=== PATIENT | female | born 2005 | race Caucasian/White ===

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

== ENCOUNTER 2023-01-28 16:02 | Emergency (ER) | payer OTHER, SELFPAY ==
[2023-01-28 16:10] VITALS: BP 84/44; PULSE 87; RESP 18; TEMP 36.6; O2SAT 100
--- NOTE | 2023-01-28 16:17 | DI.RAD.S_ITS ---
PROCEDURE: XR CHEST 1V INDICATIONS: suspected sepsis TECHNIQUE: One view of the chest was acquired. COMPARISON: None. FINDINGS: Surgical changes and devices: None. Lungs and pleura: Lungs are clear. No pleural effusions or pneumothorax. Mediastinum: Mediastinal contours appear normal. Heart size is normal. Bones and chest wall: No suspicious bony lesions. Overlying soft tissues appear unremarkable. IMPRESSION: No evidence acute pulmonary process. Dictated by: Cuco Cormier M.D. on 01/28/2023 at 16:38 Approved by: Cuco Cormier M.D. on 01/28/2023 at 16:40
[2023-01-28] MEDS: SODIUM CHLORIDE 0.9% 1,000 ML 1000 ML IV (16:34)
[2023-01-28] MEDS: ONDANSETRON 4 MG/2 ML INJ IV (16:34)
[2023-01-28] MEDS: KETOROLAC 30 MG/ML VIAL 15 MG IV (16:39)
[2023-01-28 16:40] LABS: Add Manual Diff / Slide Review NO; Basophils Absolute Auto 100 /uL (0-100); Basophils Percent Auto 0.4 % (0-2); Eosinophils Absolute Auto 200 /uL (0-450); Eosinophils Percent Auto 1.3 % (2-4); Hematocrit 37.4 % (36-46); Hemoglobin 12.7 g/dL (12.0-16.0); Lymphocytes Absolute Auto 2200 /uL (1100-4500); Mean Corpuscular Hemoglobin 32.2 PG (26-34); Mean Corpuscular Volume 94.6 fL (80-100); Monocytes Absolute Auto 1300 /uL (0-900); Monocytes Percent Auto 9.4 % (3-14); Neutrophils Absolute Auto 10000 /uL (1500-7000); Neutrophils Percent Auto 72.9 % (50-75); Platelet Count 385 X10^3/uL (150-400); Red Blood Cell Count 3.96 X10^6/uL (4.0-5.2); Red Cell Distribution Width 12.5 % (11.6-14.8); White Blood Cell Count 13.7 X10^3/uL (4.5-11.0)
[2023-01-28 16:48] LABS: INR 1.1 (0.9-1.3); Prothrombin Time 12.6 SECONDS (10.1-12.7)
[2023-01-28 16:51] LABS: Amorphous Sediment Urine 2+; Bacteria Urine Moderate (10-30); RBC Urine 5-10/HPF (0-5/HPF); Squamous Epithelial Cell Urine 0-1 /HPF (0-5/HPF); WBC Urine 5-10/HPF (0-5/HPF)
[2023-01-28 16:51] LABS: PTT Partial Thromboplastin Tim 28 SECONDS (26-36)
[2023-01-28 16:53] LABS: Lactate (Lactic Acid) 1.5 mmol/L (0.7-2.1)
[2023-01-28 16:54] LABS: Alanine Aminotransferase 17 IU/L (<35); Albumin 4.8 g/dL (3.5-5.0); Albumin Globulin Ratio 1.5 (1.0-2.8); Alkaline Phosphatase 77 U/L (38-126); Aspartate Aminotransferase 24 IU/L (14-36); Bilirubin Total 0.7 mg/dL (0.2-1.3); Blood Urea Nitrogen 9 mg/dL (7-17); Calcium 9.4 mg/dL (8.4-10.2); Carbon Dioxide 26 mmol/L (22-32); Chloride 100 mmol/L (98-107); Estimated Glomerular Filt Rate > 60 mL/min (>60); Globulin 3.2 g/dL (1.7-4.1); Glucose 96 mg/dL (70-100); HEMOLYSIS 29 (0-50); Lipase 43 U/L (23-300); Potassium 3.2 mmol/L (3.4-5.1); Sodium 137 mmol/L (137-145)
[2023-01-28 17:04] VITALS: PULSE 66; O2SAT 100
[2023-01-28 17:11] LABS: Procalcitonin 0.03 ng/mL (<0.5)
[2023-01-28 17:30] VITALS: BP 112/59; PULSE 71; O2SAT 100
--- NOTE | 2023-01-28 17:53 | ED.FEMALEGU ---
HPI - Female Genitourinary <ROSALBA Dsouza - Last Filed: 01/28/23 18:19> General Chief complaint: Urogenital-Female Stated complaint: Back pain Time Seen by Provider: 01/28/23 16:23 Source: patient Mode of arrival: Ambulatory History of Present Illness HPI Narrative: This 17-year-old female with history of UTIs in the past, presents emergency department complaining of bilateral flank pain, states that she had urinary frequency and urgency without dysuria, areas left-sided flank pain now is right-sided flank pain. Denies blood in her urine, her last menses has finished. Denies fevers, endorses nausea without vomiting, denies stool changes call respiratory symptoms including cough, congestion, runny nose or sore throat. 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 She denies any wounds, denies abnormal vaginal discharge. Denies fevers, denies chills. Related Data Previous Rx's Medication Instructions Recorded ondansetron 4 mg disintegrating 4 mg PO Q8H PRN nausea and 01/28/23 tablet vomiting #10 tabs sulfamethoxazole 800 1 tab PO BID 7 days #14 tabs 01/28/23 mg-trimethoprim 160 mg tablet (Bactrim DS) Allergies Allergy/AdvReac Type Severity Reaction Status Date / Time No Known Drug Allergies Allergy Verified 06/27/21 11:16 Review of Systems <ROSALBA Dsouza - Last Filed: 01/28/23 18:19> Review of Systems ROS Unobtainable: All systems reviewed & are unremarkable except as noted in HPI and below Patient History <ROSALBA Dsouza - Last Filed: 01/28/23 18:19> alcohol intake frequency: holidays/special occasions only Substance Use Type: does not use Exam <ROSALBA Dsouza Last Filed: 01/28/23 18:19> Narrative Exam Narrative: Reviewed vitals signs and nursing notes. General: cooperative, in no acute distress, well groomed HEENT: symmetrical facial expressions, moist mucous membranes, neck is supple CV: regular rate and rhythm, warm extremities Respiratory:Without abnormal breath sounds, normal work of breathing, without tachypnea, hypoxia. GI: abdomen soft, nontender to palpation in all quadrants, nondistended, without masses, rebound tenderness, bilateral CVA tenderness is mild to palpation, no suprapubic tenderness MSK: moves all extremities, neurovascularly intact, no weakness, normal tone Skin: brisk capillary refill, without rash or wound Neuro: normal speech and cognition, A&O x3, ambulatory, clear speech Initial Vital Signs Initial Vital Signs: Vital Signs Temperature 97.8 F 01/28/23 16:10 Pulse Rate 87 01/28/23 16:10 Respiratory Rate 18 01/28/23 16:10 Blood Pressure 84/44 L 01/28/23 16:10 Pulse Oximetry 100 01/28/23 16:10 Oxygen Delivery Method Room Air 01/28/23 16:10 <Juan Jose Alexis DO - Last Filed: 01/29/23 03:20> Initial Vital Signs Initial Vital Signs: Vital Signs Temperature 97.8 F 01/28/23 16:10 Pulse Rate 87 01/28/23 16:10 Respiratory Rate 18 01/28/23 16:10 Blood Pressure 84/44 L 01/28/23 16:10 Pulse Oximetry 100 01/28/23 16:10 Oxygen Delivery Method Room Air 01/28/23 16:10 Course <ROSALBA Dsouza - Last Filed: 01/28/23 18:19> Orders Ordered: Discontinued Medications Sodium Chloride (Normal Saline 0.9%) 1,000 mls @ 1,000 mls/hr IV BOLUS ONE Stop: 01/28/23 17:16 Last Infusion: 01/28/23 18:00 Dose: 0 mls/hr Documented By: Admin: 01/28/23 16:34 Dose: 1,000 mls/hr Documented By: BS Ceftriaxone Sodium 1,000 mg/ (Sodium Chloride) 100 mls @ 200 mls/hr IV NOW ONE Stop: 01/28/23 17:57 Last Admin: 01/28/23 18:10 Dose: Not Given Documented By: AT Ceftriaxone Sodium 1,000 mg/ (Sodium Chloride) 10 mls @ 150 mls/hr IV NOW ONE Stop: 01/28/23 18:03 Last Infusion: 01/28/23 18:15 Dose: 0 mls/hr Documented By: Admin: 01/28/23 18:10 Dose: 150 mls/hr Documented By: AT Ketorolac Tromethamine (Ketorolac 30 Mg/Ml Vial) 15 mg IV NOW ONE Stop: 01/28/23 16:36 Last Admin: 01/28/23 16:39 Dose: 15 mg Documented By: BS Ondansetron HCl (Ondansetron 4 Mg Odt) 4 mg SL NOW PRN PRN Reason: Nausea And Vomiting Ondansetron HCl (Ondansetron 4 Mg/2 Ml Inj) 4 mg IV NOW PRN PRN Reason: Nausea And Vomiting Last Admin: 01/28/23 16:34 Dose: 4 mg Documented By: BS Potassium Chloride (Potassium Chloride 20 Meq/15 Ml Udc) 40 meq PO NOW ONE Stop: 01/28/23 18:00 Last Admin: 01/28/23 18:10 Dose: 40 meq Documented By: AT Trimethoprim/Sulfamethoxazole (Trimeth/Sulfa 160/800 (Ds) Tablet) 1 tab PO NOW ONE Stop: 01/28/23 17:54 Last Admin: 01/28/23 18:03 Dose: Not Given Documented By: AT Vital Signs Vital signs: Vital Signs - 8 hr 01/28/23 16:10 01/28/23 17:04 01/28/23 17:30 Temperature 97.8 F Pulse Rate 87 66 Respiratory Rate 18 Blood Pressure 84/44 L 112/59 L Pulse Oximetry 100 100 Oxygen Delivery Method Room Air Room Air 01/28/23 17:30 Temperature Pulse Rate 71 Respiratory Rate Blood Pressure Pulse Oximetry 100 Oxygen Delivery Method Room Air <Juan Jose Alexis DO - Last Filed: 01/29/23 03:20> Orders Ordered: Discontinued Medications Sodium Chloride (Normal Saline 0.9%) 1,000 mls @ 1,000 mls/hr IV BOLUS ONE Stop: 01/28/23 17:16 Last Infusion: 01/28/23 18:00 Dose: 0 mls/hr Documented By: Admin: 01/28/23 16:34 Dose: 1,000 mls/hr Documented By: BS Ceftriaxone Sodium 1,000 mg/ (Sodium Chloride) 100 mls @ 200 mls/hr IV NOW ONE Stop: 01/28/23 17:57 Last Admin: 01/28/23 18:10 Dose: Not Given Documented By: AT Ceftriaxone Sodium 1,000 mg/ (Sodium Chloride) 10 mls @ 150 mls/hr IV NOW ONE Stop: 01/28/23 18:03 Last Infusion: 01/28/23 18:15 Dose: 0 mls/hr Documented By: Admin: 01/28/23 18:10 Dose: 150 mls/hr Documented By: AT Ketorolac Tromethamine (Ketorolac 30 Mg/Ml Vial) 15 mg IV NOW ONE Stop: 01/28/23 16:36 Last Admin: 01/28/23 16:39 Dose: 15 mg Documented By: BS Ondansetron HCl (Ondansetron 4 Mg Odt) 4 mg SL NOW PRN PRN Reason: Nausea And Vomiting Ondansetron HCl (Ondansetron 4 Mg/2 Ml Inj) 4 mg IV NOW PRN PRN Reason: Nausea And Vomiting Last Admin: 01/28/23 16:34 Dose: 4 mg Documented By: BS Potassium Chloride (Potassium Chloride 20 Meq/15 Ml Udc) 40 meq PO NOW ONE Stop: 01/28/23 18:00 Last Admin: 01/28/23 18:10 Dose: 40 meq Documented By: AT Trimethoprim/Sulfamethoxazole (Trimeth/Sulfa 160/800 (Ds) Tablet) 1 tab PO NOW ONE Stop: 01/28/23 17:54 Last Admin: 01/28/23 18:03 Dose: Not Given Documented By: AT Vital Signs Vital signs: Vital Signs - 8 hr 01/28/23 16:10 01/28/23 17:04 01/28/23 17:30 Temperature 97.8 F Pulse Rate 87 66 Respiratory Rate 18 Blood Pressure 84/44 L 112/59 L Pulse Oximetry 100 100 Oxygen Delivery Method Room Air Room Air 01/28/23 17:30 Temperature Pulse Rate 71 Respiratory Rate Blood Pressure Pulse Oximetry 100 Oxygen Delivery Method Room Air MDM - Female Genitourinary <JUAN J DsouzaP - Last Filed: 01/28/23 18:19> Lab Data 01/28/23 16:25 01/28/23 16:25 Labs: Lab Results 01/28/23 01/28/23 01/28/23 Range/Units 16:20 16:25 16:25 WBC 13.7 H (4.5-11.0) X10^3/uL RBC 3.96 L (4.0-5.2) X10^6/uL Hgb 12.7 (12.0-16.0) g/dL Hct 37.4 (36-46) % MCV 94.6 (80-100) fL MCH 32.2 (26-34) PG MCHC 34.0 (30-36) % RDW 12.5 (11.6-14.8) % Plt Count 385 (150-400) X10^3/uL Neut % (Auto) 72.9 (50-75) % Lymph % (Auto) 16.0 L (25-40) % [place] % (Auto) 9.4 (3-14) % Eos % (Auto) 1.3 L (2-4) % Baso % (Auto) 0.4 (0-2) % Neut # (Auto) 10135 H (9037-7470) /uL Lymph # (Auto) 2200 (6347-9480) /uL [place] # (Auto) 1300 H (0-900) /uL Eos # (Auto) 200 (0-450) /uL Baso # (Auto) 100 (0-100) /uL PT 12.6 (10.1-12.7) SECONDS INR 1.1 (0.9-1.3) APTT 28 (26-36) SECONDS Sodium (137-145) mmol/L Potassium (3.4-5.1) mmol/L Chloride (98-107) mmol/L Carbon Dioxide (22-32) mmol/L BUN (7-17) mg/dL Creatinine (0.52-1.04) mg/dL Estimated GFR (>60) mL/min BUN/Creatinine Ratio (6-22) Glucose (70-100) mg/dL Lactate (0.7-2.1) mmol/L Calcium (8.4-10.2) mg/dL Total Bilirubin (0.2-1.3) mg/dL AST (14-36) IU/L ALT (<35) IU/L Alkaline Phosphatase (38-126) U/L Total Protein (6.3-8.2) g/dL Albumin (3.5-5.0) g/dL Globulin (1.7-4.1) g/dL Albumin/Globulin Ratio (1.0-2.8) Lipase (23-300) U/L Procalcitonin (<0.5) ng/mL Urine RBC 5-10/hpf H (0-5/HPF) Urine WBC 5-10/hpf H (0-5/HPF) Ur Squamous Epith Cells 0-1 /hpf (0-5/HPF) Amorphous Sediment 2+ Urine Bacteria Moderate (10-30) H (None) 01/28/23 01/28/23 Range/Units 16:25 16:25 WBC (4.5-11.0) X10^3/uL RBC (4.0-5.2) X10^6/uL Hgb (12.0-16.0) g/dL Hct (36-46) % MCV (80-100) fL MCH (26-34) PG MCHC (30-36) % RDW (11.6-14.8) % Plt Count (150-400) X10^3/uL Neut % (Auto) (50-75) % Lymph % (Auto) (25-40) % [place] % (Auto) (3-14) % Eos % (Auto) (2-4) % Baso % (Auto) (0-2) % Neut # (Auto) (5744-5883) /uL Lymph # (Auto) (1690-9937) /uL [place] # (Auto) (0-900) /uL Eos # (Auto) (0-450) /uL Baso # (Auto) (0-100) /uL PT (10.1-12.7) SECONDS INR (0.9-1.3) APTT (26-36) SECONDS Sodium 137 (137-145) mmol/L Potassium 3.2 L (3.4-5.1) mmol/L Chloride 100 (98-107) mmol/L Carbon Dioxide 26 (22-32) mmol/L BUN 9 (7-17) mg/dL Creatinine 0.60 (0.52-1.04) mg/dL Estimated GFR > 60 (>60) mL/min BUN/Creatinine Ratio 15.0 (6-22) Glucose 96 (70-100) mg/dL Lactate 1.5 (0.7-2.1) mmol/L Calcium 9.4 (8.4-10.2) mg/dL Total Bilirubin 0.7 (0.2-1.3) mg/dL AST 24 (14-36) IU/L ALT 17 (<35) IU/L Alkaline Phosphatase 77 (38-126) U/L Total Protein 8.0 (6.3-8.2) g/dL Albumin 4.8 (3.5-5.0) g/dL Globulin 3.2 (1.7-4.1) g/dL Albumin/Globulin Ratio 1.5 (1.0-2.8) Lipase 43 (23-300) U/L Procalcitonin 0.03 (<0.5) ng/mL Urine RBC (0-5/HPF) Urine WBC (0-5/HPF) Ur Squamous Epith Cells (0-5/HPF) Amorphous Sediment Urine Bacteria (None) Point of Care Testing Test Results Negative Urine Dip Bedside Urine Glucose Negative Bedside Urine Bilirubin - Negative Bedside Urine Ketone - Negative Urine Specific [place] 1.010 Bedside Urine Occult Blood +++ Bedside Urine pH 7.5 Bedside Urine Protein + 30 Bedside Urine Urobilinogen - Negative Bedside Urine Nitrite - Negative Bedside Urine Leukocytes ++ 125 Esterase Imaging Data Chest x-ray: Radiologist's Impression: PROCEDURE:? XR CHEST 1V ? INDICATIONS:? suspected sepsis ? TECHNIQUE:? One view of the chest was acquired.? ? COMPARISON:? None. ? FINDINGS:? ? Surgical changes and devices:? None.? ? Lungs and pleura:? Lungs are clear.? No pleural effusions or pneumothorax.? ? Mediastinum:? Mediastinal contours appear normal.? Heart size is normal.? ? Bones and chest wall:? No suspicious bony lesions.? Overlying soft tissues appear unremarkable.? ? IMPRESSION:? No evidence acute pulmonary process. ? ? ? Dictated by: Cuco Cormier M.D. on 01/28/2023 at 16:38 ? ? Approved by: Cuco Cormier M.D. on 01/28/2023 at 16:40 ? MDM Narrative Medical decision making narrative: Chief Complaint: Bilateral flank pain Independent historian: Patient Differential diagnoses include but are not limited to: acute cystitis, pyelonephritis, dehydration, vaginitis, retained foreign body, nephrolithiasis, malignancy, interstitial cystitis, lumbar radiculopathy, urethritis, diverticulitis/colitis, perforated viscus, ovarian cyst/torsion, ectopic , vaginal infection/PID I have independently reviewed the patient's vital signs and nursing notes as well as prior records if available. Pertinent lab findings reviewed: Urine is negative, Mild leukocytosis of 13.7, no anemia, + left shift, normal coags, hypokalemia 3.2, no other electrolyte abnormalities, normal liver enzymes, no elevation or total bilirubin, urine microscopy is positive for RBCs 5-10, wbc's 5-10, mild amount of sediment with moderate bacteria. Pertinent Imaging reviewed: Deferred imaging as patient's symptoms are bilateral, she does not have fever chills, no history of nephrolithiasis, no hematuria, discussed imaging and shared decision making with pt and her mother agreed to postpone this unless her symptoms worsen. Chest x-ray was ordered under the nursing initiated order set in his negative for acute pulmonary process. Patient's history and exam are significant for upper urinary tract infection symptoms. She will be treated with ceftriaxone 1 g IV, she received 1 L normal saline, her blood pressure is normotensive, without tachycardia, without fever or chills. She is p.o. tolerant, will treat with Bactrim twice a day x7 days, Zofran as needed for nausea. Encouraged her to have urinary testing post treatment. Patient understands to follow-up with her primary care provider, stay hydrated, she received 40 mEq of potassium chloride solution for her hypokalemia 3.2. Encouraged her to eat a wide variety of foods, encourage potatoes and bananas and other potassium rich foods. She is given Toradol for pain and states this helped her symptoms the most, 1 L of normal saline which made her feel better and ceftriaxone 1 g for upper urinary tract infection, potassium chloride 40 mEq for hypokalemia of 3.2. She was given 3 names of female primary care providers in the area which she may call and set an appointment up with. She states that she has an appointment pending for September with a new provider however she does not want to wait until then. Blood cultures are pending, these were ordered by the nursing initiated order set. Social considerations that may affect disposition: none Questions are addressed and there is agreement with the plan and for follow-up. Patient is appropriate for outpatient management. MIPS: This encounter doesn't have any diagnosis' associated with MIPS criteria. <Juan Jose Alexis, DO - Last Filed: 01/29/23 03:20> Lab Data Labs: Lab Results 01/28/23 01/28/23 01/28/23 Range/Units 16:20 16:25 16:25 WBC 13.7 H (4.5-11.0) X10^3/uL RBC 3.96 L (4.0-5.2) X10^6/uL Hgb 12.7 (12.0-16.0) g/dL Hct 37.4 (36-46) % MCV 94.6 (80-100) fL MCH 32.2 (26-34) PG MCHC 34.0 (30-36) % RDW 12.5 (11.6-14.8) % Plt Count 385 (150-400) X10^3/uL Neut % (Auto) 72.9 (50-75) % Lymph % (Auto) 16.0 L (25-40) % [place] % (Auto) 9.4 (3-14) % Eos % (Auto) 1.3 L (2-4) % Baso % (Auto) 0.4 (0-2) % Neut # (Auto) 35109 H (9257-3371) /uL Lymph # (Auto) 2200 (2855-6387) /uL [place] # (Auto) 1300 H (0-900) /uL Eos # (Auto) 200 (0-450) /uL Baso # (Auto) 100 (0-100) /uL PT 12.6 (10.1-12.7) SECONDS INR 1.1 (0.9-1.3) APTT 28 (26-36) SECONDS Sodium (137-145) mmol/L Potassium (3.4-5.1) mmol/L Chloride (98-107) mmol/L Carbon Dioxide (22-32) mmol/L BUN (7-17) mg/dL Creatinine (0.52-1.04) mg/dL Estimated GFR (>60) mL/min BUN/Creatinine Ratio (6-22) Glucose (70-100) mg/dL Lactate (0.7-2.1) mmol/L Calcium (8.4-10.2) mg/dL Total Bilirubin (0.2-1.3) mg/dL AST (14-36) IU/L ALT (<35) IU/L Alkaline Phosphatase (38-126) U/L Total Protein (6.3-8.2) g/dL Albumin (3.5-5.0) g/dL Globulin (1.7-4.1) g/dL Albumin/Globulin Ratio (1.0-2.8) Lipase (23-300) U/L Procalcitonin (<0.5) ng/mL Urine RBC 5-10/hpf H (0-5/HPF) Urine WBC 5-10/hpf H (0-5/HPF) Ur Squamous Epith Cells 0-1 /hpf (0-5/HPF) Amorphous Sediment 2+ Urine Bacteria Moderate (10-30) H (None) 01/28/23 01/28/23 Range/Units 16:25 16:25 WBC (4.5-11.0) X10^3/uL RBC (4.0-5.2) X10^6/uL Hgb (12.0-16.0) g/dL Hct (36-46) % MCV (80-100) fL MCH (26-34) PG MCHC (30-36) % RDW (11.6-14.8) % Plt Count (150-400) X10^3/uL Neut % (Auto) (50-75) % Lymph % (Auto) (25-40) % [place] % (Auto) (3-14) % Eos % (Auto) (2-4) % Baso % (Auto) (0-2) % Neut # (Auto) (7619-2943) /uL Lymph # (Auto) (9769-4038) /uL [place] # (Auto) (0-900) /uL Eos # (Auto) (0-450) /uL Baso # (Auto) (0-100) /uL PT (10.1-12.7) SECONDS INR (0.9-1.3) APTT (26-36) SECONDS Sodium 137 (137-145) mmol/L Potassium 3.2 L (3.4-5.1) mmol/L Chloride 100 (98-107) mmol/L Carbon Dioxide 26 (22-32) mmol/L BUN 9 (7-17) mg/dL Creatinine 0.60 (0.52-1.04) mg/dL Estimated GFR > 60 (>60) mL/min BUN/Creatinine Ratio 15.0 (6-22) Glucose 96 (70-100) mg/dL Lactate 1.5 (0.7-2.1) mmol/L Calcium 9.4 (8.4-10.2) mg/dL Total Bilirubin 0.7 (0.2-1.3) mg/dL AST 24 (14-36) IU/L ALT 17 (<35) IU/L Alkaline Phosphatase 77 (38-126) U/L Total Protein 8.0 (6.3-8.2) g/dL Albumin 4.8 (3.5-5.0) g/dL Globulin 3.2 (1.7-4.1) g/dL Albumin/Globulin Ratio 1.5 (1.0-2.8) Lipase 43 (23-300) U/L Procalcitonin 0.03 (<0.5) ng/mL Urine RBC (0-5/HPF) Urine WBC (0-5/HPF) Ur Squamous Epith Cells (0-5/HPF) Amorphous Sediment Urine Bacteria (None) Point of Care Testing Test Results Negative Urine Dip Bedside Urine Glucose Negative Bedside Urine Bilirubin - Negative Bedside Urine Ketone - Negative Urine Specific [place] 1.010 Bedside Urine Occult Blood +++ Bedside Urine pH 7.5 Bedside Urine Protein + 30 Bedside Urine Urobilinogen - Negative Bedside Urine Nitrite - Negative Bedside Urine Leukocytes ++ 125 Esterase Discharge Plan Departure Patient Disposition: Home Clinical Impression: Complicated urinary tract infection Instructions: Kidney Infection, DI for Urinary Tract Infection (UTI) Activity Restrictions/Additional Instructions: *You have been diagnosed with an upper urinary tract infection which is sometimes call pyelonephritis however we did not image this so we call it a complicated urinary tract infection. Please stay hydrated with plenty of clear fluids,, your potassium was a little bit low today but if you incorporate a wide variety of foods, this should be fine for you. I am sorry for how your symptoms have progressed. It appears to be an upper urinary tract infection and if you do not start getting better after 24 hours, please come back to the emergency department. I have given you 7 days of an antibiotic with Zofran for nausea as needed. Please return to list to department for worsening. Follow up with your regular doctor as needed, it was a pleasure to meet you, call the number below to find a primary care provider to follow-up with sooner than that. Thank you for coming in, please eat a wide variety of foods, I hope you feel better and it was great that you came in before you got sicker. *What to do: *Please continue to take your regular medications as directed. [x ] New medication prescriptions sent to your pharmacy: [[facility]] [ ] New medication written as a paper prescription [ ] No new medications given *Please follow up with your primary care provider in 2-3 days, call for an appointment. Let them know you were seen in the Emergency Department and that we asked that you be seen for follow-up. We will electronically transmit a record of today's note if your PCP is in our system *If you do not have a primary care provider please contact [phone] to establish care with one of the [facility] primary care providers. *Return to Emergency Department if you should have any new, worsening, or concerning symptoms, such as [fever greater than 101F, chills, worsening pain, persistent vomiting or other bothersome symptoms]. Prescriptions: New sulfamethoxazole-trimethoprim [Bactrim DS] 800-160 mg tablet 1 tab PO BID 7 Days Qty: 14 0RF ondansetron 4 mg tablet,disintegrating 4 mg PO Q8H PRN (Reason: nausea and vomiting) Qty: 10 0RF Referrals: Waleska Easley MD [Physician] - Greta Almeida DO [Physician] - Eve Rowan DO [Physician] - Stand Alone Forms: Patient Portal/API <Juan Jose Alexis DO - Last Filed: 01/29/23 03:20> Cosign ED Attending Jammie Attestation: I was immediately available in the department for consultation. Documentation has been reviewed. I agree with assessment and plan.
[2023-01-28 18:00] VITALS: BP 115/58; PULSE 74; RESP 18; O2SAT 100
[2023-01-28] MEDS: CEFTRIAXONE IV (18:10)
[2023-01-28] MEDS: POTASSIUM CHLORIDE 20 MEQ/15 ML UDC 40 MEQ PO (18:10)
[2023-01-28] MEDS: SODIUM CHLORIDE 0.9% IV (18:10)
== END 2023-01-28 18:35 | disposition home or self-care (01) ==
PROVIDERS: Emergency Medicine; Emergency Provider Nurse Practitioner Critical Care Medicine
DX: N39.0 Urinary tract infection, site not specified (principal)
CPT/HCPCS: 36415; 71045; 80053; 81003; 81015; 81025; 83605; 83690; 84145; 85025; 85610; 85730; 87040; 87077; 87086; 96361; 96374; 96375; 99284; J0696; J1885; J2405